=== PATIENT | female | born 1975 | race Caucasian/White ===

== ENCOUNTER 2016-10-16 22:09 | Emergency (ER) | payer BC ==
[~2016-10-16] VITALS: Ht 160 cm; Wt 111.4 kg
[~2016-10-16 22:09] MED LIST: EFFEXOR75 MG PO; PRENATAL1 TA6 PO; VITAMIN D32000 I1 PO
[2016-10-16] MEDS ORDERED: SYMBICORT1 AE2 IH (22:19)
[2016-10-17 00:43] VITALS: BP 150/94
== END 2016-10-17 00:43 | disposition home or self-care (01) ==
LOC: ED 22:09
DX: M25.462 Effusion, left knee (principal); M25.562 Pain in left knee; R73.03 Prediabetes
CPT/HCPCS: J1885